=== PATIENT | male | born 1975 | race Caucasian/White ===

== ENCOUNTER 2020-05-20 07:30 | Day surgery (SDC) | payer BC ==
[2020-05-20] MEDS ORDERED: Sodium Chloride 0.9% 1,000 ML IV SCH (08:00)
[2020-05-20] MEDS ORDERED: Propofol 200 MG/20 ML SDV ONE (08:34)
[2020-05-20] MEDS ORDERED: fentaNYL 100 MCG/2 ML SDV ONE (08:34)
[2020-05-20] MEDS ORDERED: Midazolam 1 MG/ML 2 ML SDV ONE (08:34)
--- NOTE | 2020-05-23 08:10 | OR ---
DATE OF PROCEDURE: 06/17/2020 SURGEON: Frandy Rodriguez MD PROCEDURE: Colonoscopy. FINDINGS: Sigmoid colon polyp, approximately 5 mm, completely removed using cold biopsy forceps. COMPLICATIONS: None. DOCK CLERK: None. ANESTHETIC: MAC. PREOPERATIVE DIAGNOSIS: Family history of colorectal cancer. POSTOPERATIVE DIAGNOSIS: Family history of colorectal cancer. RISKS: Risks, benefits, alternatives, and limitations including but not limited to infection, bleeding, perforation, and false positives and false negatives were explained to patient who wished to proceed. PROCEDURE IN DETAIL: The patient was placed in left lateral decubitus position. Digital rectal exam was performed without abnormality. Scope was introduced and advanced atraumatically to ileocecal valve. A photo was taken. The scope was brought back to the ascending, transverse, descending colon, and retroflexed. No evidence of old or new blood. The aforementioned polyp was identified and completely removed as described above. No abnormalities on retroflexion. Greater than 8 minutes was spent removing the scope. The prep was acceptable, approximately 95% of luminal surface could be seen. The patient tolerated the procedure well. Frandy Rodriguez MD /[id number]
== END 2020-05-20 10:45 | disposition home or self-care (01) ==
LOC: JP.SDS 07:30
PROVIDERS: ATTEND Surgery
DX: Z12.11 Encounter for screening for malignant neoplasm of colon (principal); K63.5 Polyp of colon; F17.200 Nicotine dependence, unspecified, uncomplicated; Z80.0 Family history of malignant neoplasm of digestive organs
CPT/HCPCS: 45380; 88305; J2250; J2704; J3010; J7030